=== PATIENT | male | born 1945 | race Caucasian/White ===

== ENCOUNTER → 2020-11-11 | Outpatient (REF) | payer MEDICARE, OTHER ==
[~2020-11-11] MED LIST: ATEN25TA OR; BRIN1OPH; COUMADIN PO; FLEC100T2 PO; FLEC50TA2 OR; LIPI10TA PO; LIPITOR PO; LISI-538 PO; LOPR50TA OR; METO1TAB87 PO; MULTIVIT PO; PARO30TA2 PO; PAXI30TA OR; THERGRAN; TRAV04OPD OU; WARF5TAB66 PO; WARF7.5T17 PO
== END ==
LOC: M LAB REF 16:40
PROVIDERS: ATTEND Physician Assistant Medical
DX: R31.9 Hematuria, unspecified (principal)

== ENCOUNTER → 2020-11-18 | Outpatient (REF) | payer MEDICARE, OTHER | LOC: M LAB REF 11:08 | PROVIDERS: ATTEND Family Medicine | DX: R31.9 Hematuria, unspecified (principal) ==

== ENCOUNTER → 2020-11-25 | Outpatient (CLI) | payer MEDICARE, OTHER ==
[~2020-11-25] MED LIST changes: -LISI-538 PO; +LISI20TA33 PO
--- NOTE | 2020-11-25 15:48 | REP ---
INDICATION: HEMATURIA, UNSPECIFIED. COMPARISON: None. TECHNIQUE: Urinary tract sonography. FINDINGS: Scanning at the level of the urinary bladder demonstrates an in mobile mass lesion at the bladder base to the right of midline measuring 2.7 x 2.8 x 1.9 cm. This could be due to prostate hypertrophy but I cannot exclude a bladder mass lesion. The prostate is enlarged. Its transabdominal dimensions are 3.9 x 3.6 x 5.7 cm for a calculated glandular volume of 42 mL.. Renal cortical echogenicity pattern is normal bilaterally and contours are smooth. There is no evidence of hydronephrosis or mass in either side. There is a 2.1 cm parapelvic cyst in the left kidney.. The right kidney measures 10.9 x 5.4 x 4.5 cm. Left renal dimensions are 12.2 x 5.0 x 4.7 cm. IMPRESSION: Small parapelvic cyst left kidney. Prostate enlargement. Possible right posterior bladder mass versus eccentric prostate enlargement extending into the bladder base.. Cannot exclude bladder mass. <Electronically signed by Arpan Malone > 11/25/20 [id number]
== END ==
LOC: M RAD 12:24
PROVIDERS: ATTEND Physician Assistant Medical
DX: N28.1 Cyst of kidney, acquired (principal); R31.9 Hematuria, unspecified

== ENCOUNTER → 2020-11-25 | Outpatient (REF) | payer MEDICARE, OTHER | LOC: M LAB REF 11:33 | PROVIDERS: ATTEND Family Medicine | DX: R31.9 Hematuria, unspecified (principal) ==

== ENCOUNTER → 2020-12-27 | Outpatient (REF) | payer MEDICARE, OTHER ==
[2020-12-27 17:17] LABS: INR 1.52; PROTHROMBIN TIME 18.6 SECONDS (12.5-14.3)
[2020-12-27 17:33] LABS: APPEARANCE, URINE CLEAR (CLEAR); BACTERIA, URINE AUTO NEGATIVE (NEGATIVE); BILIRUBIN, URINE AUTO NEGATIVE (NEGATIVE); BLOOD, URINE BLOOD 2+ (NEGATIVE); COLOR, URINE YELLOW (YELLOW); GLUCOSE, URINE (UA) AUTO NEGATIVE (NEGATIVE); KETONE, URINE AUTO NEGATIVE (NEGATIVE); LEUKOCYTE ESTERASE, URINE AUTO NEGATIVE (NEGATIVE); MUCUS, URINE SMALL (NEGATIVE); NITRITE, URINE AUTO NEGATIVE (NEGATIVE); PROTEIN, URINE AUTO 1+ mg/dL (NEGATIVE); RBC, URINE AUTO 18 /HPF (0-3); SPECIFIC GRAVITY URINE AUTO 1.013 (1.002-1.035); SQUAMOUS EPITHELIAL CELL UR AU 0 /HPF (0-6); UROBILINOGEN, URINE AUTO 0.2 mg/dL (0.0-2.0); WBC, URINE AUTO 5 /HPF (0-3)
== END ==
LOC: M LAB REF 16:26
PROVIDERS: ATTEND Family Medicine
DX: Z01.812 Encounter for preprocedural laboratory examination (principal); Z79.01 Long term (current) use of anticoagulants

== ENCOUNTER → 2021-07-21 | Outpatient (CLI) | payer MEDICARE, OTHER ==
[~2021-07-21] MED LIST changes: +ATOR1TAB19 PO; +PARO20TA3 PO; +PRESCAP PO; +SIMB1SUS OU; +TAMS1CAP17 PO; +TRAV2.5D OU; +WARF-23 PO
== END ==
LOC: M LABSMTC 09:01
PROVIDERS: ATTEND Anesthesiology
DX: Z01.818 Encounter for other preprocedural examination (principal); Z11.52 Encounter for screening for COVID-19

== ENCOUNTER → 2021-07-22 | Outpatient (REF) | payer MEDICARE, OTHER ==
[2021-07-22 21:00] LABS: % LABILE ALKALINE PHOSPHATASE 63.82 %
== END ==
LOC: M LAB REF 18:12
PROVIDERS: ATTEND Family Medicine
DX: R74.8 Abnormal levels of other serum enzymes (principal)

== ENCOUNTER 2021-07-25 08:11 | Day surgery (SDC) | payer MEDICARE, OTHER ==
[~2021-07-25] VITALS: Ht 182.9 cm; Wt 75.5 kg
[~2021-07-25 08:11] MED LIST changes: +NS 1,000 ML IV ONE
[2021-07-25] MEDS ORDERED: propofoL 500 MG/50 ML VIAL As Ordered ONE (09:18)
[2021-07-25] MEDS ORDERED: LIDOCAINE 2% 100MG/5ML SDV (FOR ANES.) As Ordered ONE (09:18)
--- NOTE | 2021-07-25 09:29 | ROOR ---
Patient Name: Amilcar Garland Procedure Date: 07/25/2021 9:10 AM Date of : 1945 Age: 76 Room: [facility] Gender: Male Note Status: Finalized Procedure: Total Colonoscopy to Cecum Indications: High risk colon cancer surveillance: Personal history of colonic polyps, Last colonoscopy: 2015 Providers: Moe Serna MD Referring MD: Ash Aguayo MD Requesting Provider: Medicines: Monitored Anesthesia Care Complications: No immediate complications. Procedure: Pre-Anesthesia Assessment: - The heart rate, respiratory rate, oxygen saturations, blood pressure, adequacy of pulmonary ventilation, and response to care were monitored throughout the procedure. The Colonoscope was introduced through the anus and advanced to the cecum, identified by appendiceal orifice and ileocecal valve. The colonoscopy was performed without difficulty. The patient tolerated the procedure well. The quality of the bowel preparation was excellent. Findings: The perianal and digital rectal examinations were normal. Non-bleeding internal hemorrhoids were found during retroflexion. The hemorrhoids were small and Grade I (internal hemorrhoids that do not prolapse). Multiple small and large-mouthed diverticula were found in the recto-sigmoid colon, sigmoid colon and descending colon. The exam was otherwise without abnormality on direct and retroflexion views. Impression: - Non-bleeding internal hemorrhoids. - Diverticulosis in the recto-sigmoid colon, in the sigmoid colon and in the descending colon. - The examination was otherwise normal on direct and retroflexion views. - No specimens collected. - The exam was otherwise normal to the cecum. Recommendation: - Patient has a contact number available for emergencies. The signs and symptoms of potential delayed complications were discussed with the patient. Return to normal activities tomorrow. Written discharge instructions were provided to the patient. - High fiber diet. - Discharge patient to home. - Continue present medications. - Repeat colonoscopy is not recommended for screening purposes. - Return to referring physician. - The findings and recommendations were discussed with the patient. Procedure Code(s): --- Professional --- G0105, Colorectal cancer screening; colonoscopy on individual at high risk Diagnosis Code(s): --- Professional --- Z86.010, Personal history of colonic polyps K64.0, First degree hemorrhoids K57.30, Diverticulosis of large intestine without perforation or abscess without bleeding CPT copyright 2019 [employer]. All rights reserved. The codes documented in this report are preliminary and upon white shoe ragger review may be revised to meet current compliance requirements. Moe Serna MD Moe Serna MD 07/25/2021 9:28:54 AM Electronically signed by Moe Serna MD Number of Addenda: 0 Note Initiated On: 07/25/2021 9:10 AM Estimated Blood Loss: Estimated blood loss: none.
[2021-07-25 09:50] VITALS: BP 116/63
== END 2021-07-25 09:58 | disposition home or self-care (01) ==
LOC: M OPP 08:11
PROVIDERS: ATTEND Internal Medicine Gastroenterology
DX: Z12.11 Encounter for screening for malignant neoplasm of colon (principal); Z86.010 Personal history of colon polyps; K57.30 Diverticulosis of large intestine without perforation or abscess without bleeding; K64.0 First degree hemorrhoids; I48.91 Unspecified atrial fibrillation; Z79.899 Other long term (current) drug therapy; Z85.9 Personal history of malignant neoplasm, unspecified; Z92.21 Personal history of antineoplastic chemotherapy

== ENCOUNTER → 2021-07-31 | Outpatient (CLI) | payer MEDICARE, OTHER ==
[~2021-07-31] MED LIST changes: +GASTROGRAFIN SOLUTION 30ML (Q9963) As Ordered ONE; +ISOVUE-370 76% 100ML VIAL As Ordered ONE; -NS 1,000 ML IV ONE
--- NOTE | 2021-08-01 10:07 | REP ---
INDICATION: ELEVATED LFT'S. COMPARISON: None. TECHNIQUE: Standard helical technique before and after the intravenous administration of 100 cc Isovue 370. Oral bowel preparatory contrast was administered prior to the exam. FINDINGS: The lung bases are clear. There is slight bilateral cylindrical bronchiectasis. The pre contrast enhanced portion examination shows a patent splenic densities to be within normal limits. There is no nephrolithiasis or cholelithiasis. The contrast-enhanced portion examination shows the liver, gallbladder, spleen, pancreas, adrenal glands, and left kidney are unremarkable. In the interpolar region of the right kidney there is a 1 cm sized round simple cyst. The abdominal aorta and para-aortic regions are within normal limits. The bowel loops and the mesenteries are within normal limits. There is no evidence of a mass or adenopathy. There is descending colon and sigmoid colon diverticulosis. There is no free fluid or free air. There are a few air densities in the gas dependent portion of the urinary bladder with possible urinary bladder wall thickening. The urinary bladder is only mildly fluid filled. 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 Bone window technique throughout the examination shows spinal degenerative changes. IMPRESSION: 1. Small Bosniak class 1 right renal cyst. 2. Air density in the urinary bladder of uncertain etiology. Cystitis from a gas producing organism cannot be ruled out. I have not been given history that this patient has had recent urinary bladder instrumentation. That needs to be evaluated clinically. 3. Diverticulosis as described above. 4. There is a benign 1 cm sized left adrenal gland nodule. 5. Other findings as described above. <Electronically signed by Leon Alvarado > 08/01/21 [id number]
== END ==
LOC: M RAD 15:58
PROVIDERS: ATTEND Family Medicine
DX: R74.8 Abnormal levels of other serum enzymes (principal); E27.9 Disorder of adrenal gland, unspecified; N28.1 Cyst of kidney, acquired
CPT/HCPCS: 74178; Q9963; Q9967

== ENCOUNTER → 2021-12-05 | Outpatient (CLI) | payer MEDICARE, OTHER ==
[~2021-12-05] MED LIST changes: -GASTROGRAFIN SOLUTION 30ML (Q9963) As Ordered ONE; -ISOVUE-370 76% 100ML VIAL As Ordered ONE
== END ==
LOC: M RAD 09:34
PROVIDERS: ATTEND Family Medicine
DX: R74.8 Abnormal levels of other serum enzymes (principal); C67.5 Malignant neoplasm of bladder neck
CPT/HCPCS: 78306; A9503